=== PATIENT | female | born 1975 | race Caucasian/White ===

== ENCOUNTER → 2018-12-02 | Outpatient (CLI) | payer BC ==
--- NOTE | 2018-12-02 16:05 | MRI ---
EXAM DESCRIPTION: Thoracic Spine w/wo Contrast: Magnetic Resonance Imaging. CLINICAL HISTORY: MULTIPLE SCLEROSIS COMPARISON: MRI scan of the cervical spine without and with gadolinium IV contrast on this visit TECHNIQUE: Multiplanar, multiple standard sequences, without and with gadolinium IV contrast MRI, thoracic spine. FINDINGS: T7-T8 disc desiccation with minimal disc space loss. Anterior disc bulge. Right posterior disc bulge abutting the cord and the right extradural space as well as the exiting right C7 nerve. Mild bilateral foraminal narrowing and right paracentral mild canal narrowing. No abnormal enhancement in the disc space canal or cord at this level. T2-T3: Minimal disc space loss and disc desiccation. Posterior midline disc bulge abutting the cord. Mild canal narrowing but no foraminal stenosis. Normal enhancement in the disc space, cord and foramina. Remaining discs with normal signal. Disc spaces are preserved. Canal and foramina are patent. No scoliosis. Facet joints are unremarkable. Conus terminates T12-L1. Cord with normal signal, no compression.. No cord enhancement. Paravertebral soft tissues are unremarkable. No abnormal paravertebral enhancement. Normal marrow signal in the remaining vertebral bodies and the posterior elements. Vertebral bodies are not compressed at any level. Normal enhancement in the vertebral bodies and posterior elements. IMPRESSION: 1. T7-T8 disc desiccation with right posterior bulge or small herniation abutting the right extradural space, right ventral cord, and the right T7 nerve. No canal or foraminal stenosis. No mass or abnormal enhancement in the disc space, cord, or foramina. 2. Posterior midline bulge or small protrusion T2-T3 disc which is mildly desiccated. No canal or foraminal stenosis. No abnormal enhancement in the disc space, cord or foramina. 3. Normal appearance of the remaining disc spaces. No abnormal enhancement. Normal caliber of the cord at other levels with no compression or edema. No abnormal enhancement. Electronically signed by: Yung Carmona MD 12/02/2018 4:03 PM CDT
--- NOTE | 2018-12-02 16:16 | MRI ---
EXAM DESCRIPTION: Cervical Spine w/wo Contrast: MRI. CLINICAL HISTORY: 42 years Female MULTIPLE SCLEROSIS COMPARISON: MRI scan of the thoracic spine without and with gadolinium IV contrast. TECHNIQUE: Multiplanar, high-field MRI, multiple sequences, without and with gadolinium IV contrast Cervical spine. Technically difficult study because of fat saturation not operational on postcontrast T1 images. FINDINGS: Minimal desiccation of the C2-3 through C6-7 discs. Minimal posterior midline bulge of the C6-7 disc. Canal and foramina are patent at every level. Facet joints are unremarkable with no ligament thickening. No abnormal enhancement in the disc spaces or foramina. Normal signal in the remaining discs with no bulging. Disc spaces preserved. Canal and neural foramina are patent. Facet joints are negative. No abnormal enhancement in the disc spaces or foramina. Spinal alignment showing slightly reduced lordosis.. No cord compression or cord edema. Normal caliber of the cord with no abnormal enhancement. Atlantoaxial joint negative.. Base of the cerebellar tonsils is above the foramen magnum. Paravertebral soft tissues unremarkable with no abnormal enhancement.. Vertebral bodies are not compressed at any level. Normal marrow signal in the remaining vertebral bodies and the posterior elements. IMPRESSION: 1. Minimal desiccation and bulging of the C6-C7 disc but not touching the cord. Mild canal narrowing. Normal enhancement. Remaining discs are unremarkable. No canal or neural foraminal stenosis. No abnormal enhancement in the disc spaces or neural foramina. 2. Normal signal and enhancement in the cord. Normal size. No multiple sclerosis plaques are abnormal enhancement is visualized. Electronically signed by: Yung Carmona MD 12/02/2018 4:15 PM CDT
== END ==
LOC: MRI 13:36
PROVIDERS: ATTEND Emergency Medicine
DX: G35 Multiple sclerosis (principal); M50.323 Other cervical disc degeneration at C6-C7 level; M51.34 Other intervertebral disc degeneration, thoracic region; M51.84 Other intervertebral disc disorders, thoracic region

== ENCOUNTER 2020-04-24 09:15 | Emergency (ER) | payer BC ==
[2020-04-24] MEDS ORDERED: SODIUM CHLORIDE 0.9% 1,000 ML BAG ONE (09:21)
[2020-04-24] MEDS ORDERED: SODIUM BICARBONATE SYRINGE 50 MEQ/50 ML SYG IV ONE (09:21)
[2020-04-24] MEDS ORDERED: CALCIUM CHLORIDE INJ 100 MG/ML SYG IV ONE (09:21)
[2020-04-24] MEDS ORDERED: EPINEPHrine INJ 0.1 MG/ML 10 ML SYG ONE (09:21)
--- NOTE | 2020-04-24 09:42 | ED.PDOC ---
History of Present Illness - General Time Seen by Provider: 04/24/20 09:39 Source: EMS notes reviewed, family, EMS Exam Limitations: clinical condition - History of Present Illness Initial Comments: 44 yo with hx of MS and [place] comes in cardiac arrest. Last known awake at 645 AM. Per was feeling short of breath this morning, which was new. called to check on her and no answer around 830 AM. No history of PE or blood clots. When EMS arrived she was in PEA, states she was cyanotic from chest up. Patient was intubated at scene and CPR was started at 853 AM. She received 3 rounds of epinephrine in route. When she arrived, no pulse. not on estrogen, no recent surgery or immobility. Review of Systems - Review of Systems Respiratory: States: short of breath Neurological: States: headache Unable to Obtain Due To: condition Past Medical History (General) - Patient Medical History Hx Seizures: No Hx Stroke: No Hx Dementia: No Hx Asthma: No Hx of COPD: No Hx Cardiac Disorders: No Hx Congestive Heart Failure: No Hx Pacemaker: No Hx Hypertension: No Hx Thyroid Disease: No Hx Diabetes: No Hx Gastroesophageal Reflux: No Hx Renal Disease: No Hx Cancer: No Hx of HIV: No Hx Hepatitis B: No Hx Hepatitis C: No Hx MRSA: No Hx Other PMH: No Physical Exam - Physical Exam General Appearance: Other - GCD 3 Eyes, Ears, Nose, Throat Exam: other - pupils dilated, fixed. Neck: supple Respiratory: other - intubated. Blood noted in ETT tube. clear lung sounds bilaterally. Cardiovascular/Chest: other - pulseless Peripheral Pulses: radial,right: 0, radial,left: 0, femoral,right: 0, femoral,left: 0 Gastrointestinal/Abdominal: soft Rectal Exam: deferred Extremity: normal inspection, no pedal edema Neurologic: other - gcs 3 Skin Exam: other - cyanotic, cool Progress - Progress Progress: 04/24/20 09:44 CPR was continued. She was given an amp of Ca Gluconate and Bicarb for PEA. She received an additional 4 rounds of epinephrine. classroom monitor now shows aystole. I suspect she may have suffered a massive PE; however, due to the juventino th of CPR (42 minutes) I do not feel she would benefit from tpa at this time. bedside US confirmed no cardiac activity. Time of 934. 04/24/20 09:50 Departure - Departure Clinical Impression: Cardiac arrest ICD-10 Supporting Text: Cardiac arrest Time of Disposition: 09:34 Disposition: Critical Care Note - Critical Care Note Total Time (mins): 30
== END 2020-04-24 09:34 | disposition expired ==
LOC: ER 09:15
DX: I46.9 Cardiac arrest, cause unspecified (principal); G35 Multiple sclerosis; M35.2 Behcet's disease